=== PATIENT | female | born 1990 | race Caucasian/White ===

== ENCOUNTER 2018-11-14 08:35 | Inpatient (IN) | payer OTHER ==
--- NOTE | 2018-11-14 11:56 | PR ---
[facility] [address] [facility] [place], [place] [address] Signed Progress Notes IP Datetime Report Generated by LONG: 11/14/2018 11:56 PROGRESS NOTES: [id number] Impression: Reassuring heart rate; Slow Progression of Labor Procedures: Sterile Vag Exam Plan: Augmentation Informed Consent Obtain: Vaginal Delivery; Risks, Benefits and Alternatives Discussed VITAL SIGNS: [id number] Vital Signs: Reviewed VS Notable Details: mild HTN EXAM: [id number] Dilatation: 1.5 Effacement: 80 Station: -2 Uterine Contractions: approx q 5 min, mild MEMBRANES: [id number] Membrane Status: Ruptured Amniotic Fluid Color: Clear Comments: Not much change and has been ruptured >7 hrs. Feel pitocin augmentation needed. Fetus A: [id number] FHR Baseline: 140 Variability: Moderate 6-25bpm Accelerations: 15X15 Decelerations: None FHR Category: Category I Presentation: Vertex Comments on Fetus A: No evidence of metabolic acidosis. Fetus B: [id number] Signing Physician: Jillian Hall MD Copies: ~ *Electronically Signed* 11/14/18 1156 JILLIAN HALL MD PATIENT NAME: DANIEL MULLEN PROGRESS NOTE DATE OF : 92 PHYSICIAN: JILLIAN HALL MD RPT #: [id number] REPORT IS CONFIDENTIAL AND NOT TO BE RELEASED WITHOUT AUTHORIZATION
[2018-11-14] MEDS ORDERED: LOPRESSOR HCT1 EAC1 PO (20:20)
[2018-11-14] MEDS ORDERED: VITAFOL-OB+DHA1 EACH PO (20:20)
--- NOTE | 2018-11-14 21:17 | PR ---
[facility] [address] [facility] [place], [place] [address] Signed Progress Notes IP Datetime Report Generated by LONG: 11/14/2018 21:17 PROGRESS NOTES: [id number] Impression: Slow Progression of Labor Procedures: Intrauterine Pressure Catheter; Sterile Vag Exam Plan: Continue present management Informed Consent Obtain: Vaginal Delivery; Risks, Benefits and Alternatives Discussed VITAL SIGNS: [id number] Vital Signs: Reviewed; Within Normal Limits VS Notable Details: mild HTN EXAM: [id number] Dilatation: 3.5 Effacement: 85 Station: -2 Uterine Contractions: q 2 to 4 min MEMBRANES: [id number] Membrane Status: Ruptured Amniotic Fluid Color: Clear Comments: Comfortable after epidural. Slow progress despite pit. Will place IUPC and increase pit as needed. Fetus A: [id number] FHR Baseline: 145 Variability: Moderate 6-25bpm Accelerations: 15X15 Decelerations: Variable FHR Category: Category II Presentation: Vertex Comments on Fetus A: appears reassuring overall but will continue close observation Fetus B: [id number] Signing Physician: Jillian Hall MD Copies: ~ *Electronically Signed* 11/14/182116 JILLIAN HALL MD PATIENT NAME: DANIEL MULLEN PROGRESS NOTE DATE OF : 92 PHYSICIAN: JILLIAN HALL MD RPT #: [id number] REPORT IS CONFIDENTIAL AND NOT TO BE RELEASED WITHOUT AUTHORIZATION
--- NOTE | 2018-11-14 21:45 | PR ---
[facility] [place] [facility] [address] [place], [place] [address] Signed Progress Notes IP Datetime Report Generated by LONG: 11/14/2018 21:45 PROGRESS NOTES: [id number] Impression: Reassuring heart rate Procedures: Intrauterine Pressure Catheter Plan: Continue present management Informed Consent Obtain: Vaginal Delivery; Risks, Benefits and Alternatives Discussed VITAL SIGNS: [id number] Vital Signs: Reviewed VS Notable Details: decreased BPs compared to baseline EXAM: [id number] Dilatation: 3.5 Effacement: 85 Station: -2 Uterine Contractions: not picking up well MEMBRANES: [id number] Membrane Status: Ruptured Amniotic Fluid Color: Clear Comments: Comfortable with epidural. Fetus much more reassuring currently and accel with exam consistent with no acidosis at this time. Will allow baby to continue to recover and will restart pit if baby remains reassuring over the next 30 min. IUPC replaced as initial IUPC was not picking up any contractions. Fetus A: [id number] FHR Baseline: 140 Variability: Moderate 6-25bpm Accelerations: 15X15 Decelerations: Prolonged FHR Category: Category II Presentation: Vertex Comments on Fetus A: prolonged decel but now back up to baseline with accel with exam--do feel there is reserve Fetus B: [id number] Signing Physician: Jillian Hall MD Copies: ~ *Electronically Signed* 11/14/18 2147 JILLIAN HALL MD PATIENT NAME: DANIEL MULLEN PROGRESS NOTE DATE OF : 92 PHYSICIAN: JILLIAN HALL MD RPT #: [id number] REPORT IS CONFIDENTIAL AND NOT TO BE RELEASED WITHOUT AUTHORIZATION
--- NOTE | 2018-11-16 09:29 | PR ---
[facility] [address] [facility] [place], [place] [address] Signed PP Progress Notes Datetime Report Generated by CPFelicity: 11/16/2018 09:29 SUBJECTIVE: [id number] Pain: Within normal limits Vital Signs: [id number] Vital Signs: Reviewed; Within Normal Limits EXAM: [id number] Cardiovascular: Not Done Respiratory: Not Done Abdomen/Uterus: Abnormal Lochia: Normal Vulva/Perineum: Not Done Breasts: Not Done CVA Tenderness: Not Done Extremities: Normal Incision: Not Applicable Progress: Normal Exam Comments: Fundus firm, NT @ U-1. H/H 11.7/36.0, WBC 14.6, plat 154k IMPRESSION/PLAN/PROCEDURES: [id number] Impression: Normal progression Plan: Discharge Procedures: None Progress Notes: Doing well. She would like D/C today. Signing Physician: Jillian Hall MD Copies: ~ *Electronically Signed* 11/16/18928 JILLIAN HALL MD PATIENT NAME: DANIEL MULLEN PROGRESS NOTE DATE OF : 92 PHYSICIAN: JILLIAN HALL MD RPT #: [id number] REPORT IS CONFIDENTIAL AND NOT TO BE RELEASED WITHOUT AUTHORIZATION
== END 2018-11-16 10:55 | disposition home or self-care (01) | DRG 806 ==
LOC: FBCO 08:35 → FBC 09:35
PROVIDERS: ADMIT Obstetrics & Gynecology
PROC: 00HU33Z Insertion of Infusion Device into Spinal Canal, Percutaneous Approach (ICD-10-PCS; 2018-11-14)
PROC: 3E0R3BZ Introduction of Anesthetic Agent into Spinal Canal, Percutaneous Approach (ICD-10-PCS; 2018-11-14)
PROC: 10E0XZZ Delivery of Products of Conception, External Approach (ICD-10-PCS; principal; 2018-11-15)
PROC: 0KQM0ZZ Repair Perineum Muscle, Open Approach (ICD-10-PCS; 2018-11-15)
DX: O42.12 Full-term premature rupture of membranes, onset of labor more than 24 hours following rupture (principal); O10.92 Unspecified pre-existing hypertension complicating childbirth; Z37.0 Single live birth; Z3A.39 39 weeks gestation of pregnancy; O69.1XX0 Labor and delivery complicated by cord around neck, with compression, not applicable or unspecified; O70.1 Second degree perineal laceration during delivery; Z67.21 Type B blood, Rh negative
CPT/HCPCS: 01960; 36415; 59025; 82803; 84112; 85027; 99213; J2590; J2795; J7120

== ENCOUNTER 2021-06-10 00:08 | Inpatient (IN) | payer OTHER ==
[~2021-06-10 00:08] MED LIST: LOPRESSOR HCT1 EAC1 PO; VITAFOL-OB+DHA1 EACH PO
--- NOTE | 2021-06-10 08:29 | PR ---
[facility] [address] [facility] [place], [place] [address] Signed Progress Notes IP Datetime Report Generated by CPN: 06/10/2021 08:29 PROGRESS NOTES: [id number] Impression: Normal Progression of Labor Procedures: Artificial ROM; Sterile Vag Exam Plan: Continue Present Management VITAL SIGNS: [id number] Vital Signs: Reviewed; Within Normal Limits EXAM: [id number] Dilatation: 2.0 Effacement: 60 Station: -2 Contractions: q 1 to 4 min MEMBRANES: [id number] ROM Note: Comments: Progressing. Will continue close observation. FETUS A: [id number] FHR Baseline: 130 Variability: Moderate 6-25bpm Accelerations: 15X15 Decelerations: None FHR Category: Category I Presentation: Vertex Comments on Fetus A: No evidence of metabolic acidosis FETUS B: [id number] Signing Physician: Jillian Hall MD Copies: ~ *Electronically Signed* 06/10/21828 JILLIAN HALL MD PATIENT NAME: DANIEL MULLEN PROGRESS NOTE DATE OF : 92 PHYSICIAN: JILLIAN HALL MD RPT #: [id number] REPORT IS CONFIDENTIAL AND NOT TO BE RELEASED WITHOUT AUTHORIZATION
--- NOTE | 2021-06-11 08:21 | PR ---
[facility] [address] [facility] [place], [place] [address] Signed PP Progress Notes Datetime Report Generated by CPN: 06/11/2021 08:21 SUBJECTIVE: [id number] Pain: Within Normal Limits Vital Signs: [id number] Vital Signs: Reviewed; Within Normal Limits EXAM: Ongoing Cardiovascular: Not Done Respiratory: Not Done Abdomen/Uterus: Abnormal Lochia: Normal Vulva/Perineum: Not Done Breasts: Not Done CVA Tenderness: Not Done Extremities: Normal Incision: Not Applicable Progress: Normal Exam Comments: Fundus firm, NT @ U-2. H/H 11.7/34.2, WBC 10.4, plat 120k IMPRESSION/PLAN/PROCEDURES: [id number] Impression: Normal Progression Plan: Discharge Procedures: Rhogam Progress Notes: Doing well. She desires discharge. Signing Physician: Jillian Hall MD Copies: ~ *Electronically Signed* 06/11/21820 JILLIAN HALL MD PATIENT NAME: DANIEL MULLEN PROGRESS NOTE DATE OF : 92 PHYSICIAN: JILLIAN HALL MD RPT #: [id number] REPORT IS CONFIDENTIAL AND NOT TO BE RELEASED WITHOUT AUTHORIZATION
== END 2021-06-11 13:50 | disposition home or self-care (01) | DRG 806 ==
LOC: FBC 00:08
PROVIDERS: ADMIT Obstetrics & Gynecology; ATTEND Obstetrics & Gynecology
PROC: 10E0XZZ Delivery of Products of Conception, External Approach (ICD-10-PCS; principal; 2021-06-11)
PROC: 10907ZC Drainage of Amniotic Fluid, Therapeutic from Products of Conception, Via Natural or Artificial Opening (ICD-10-PCS; 2021-06-11)
PROC: 3E0DXGC Introduction of Other Therapeutic Substance into Mouth and Pharynx, External Approach (ICD-10-PCS; 2021-06-11)
PROC: 0KQM0ZZ Repair Perineum Muscle, Open Approach (ICD-10-PCS; 2021-06-11)
DX: O48.0 Post-term pregnancy (principal); O10.02 Pre-existing essential hypertension complicating childbirth; Z37.0 Single live birth; Z3A.40 40 weeks gestation of pregnancy; O99.824 Streptococcus B carrier state complicating childbirth; O70.1 Second degree perineal laceration during delivery; O24.420 Gestational diabetes mellitus in childbirth, diet controlled; O26.893 Other specified pregnancy related conditions, third trimester; Z67.21 Type B blood, Rh negative; O99.214 Obesity complicating childbirth; E66.9 Obesity, unspecified; Z88.8 Allergy status to other drugs, medicaments and biological substances
CPT/HCPCS: 82565; 82570; 82803; 83030; 84156; 84450; 84520; 84550; 85027; 86850; 86900; 86901; A9270; J2540; J2590; J2790